=== PATIENT | male | born 2005 | race Caucasian/White ===

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

== ENCOUNTER 2025-02-18 15:13 | Emergency (ER) | payer OTHER, SELFPAY ==
--- OUTSIDE RECORDS SUMMARY | 2025-02-18 15:23 | XMS_ITS | Clinical Summary ---
Author Organization [facility] [address] [facility] [address] l[address] Address [address] [place] [address] Care Team Providers Care Backup Administrator Name Role Phone Tad Tapia MD Primary Care Provider [phone] Allergies No known active allergies Medications No known medications Active Problems Problem Noted Date Diagnosed Date Encounter for medical examination to establish c are 12/25/2022 Immunizations Immunization Administration Dates Next Due DTaP 08/27/2004 DTaP / Hep B / IPV 2003,2003, 004 DTaP / IPV 10/01/2008 HPV9 03/08/2015 Hep A, Ped Unspecified 05/17/2007,02/23/2006 Hep B, Adolescent or Pediatric 2003 HiB 05/20/2004, 4,2003,04/22 Influenza, Quadrivalent, Birdie l Culture-based MDCK, Preservative Free, Antibiotic Free, Intramuscular 01/31/2019 Influenza, Split 02/13/2008 Influenza, Unspecified 12/25/2022(Deferr ed: Patient Refused),12/25/2021(Deferred: Patient Refused),12/27/2006,02/23/2006 MMR 03/08/2015,10/01/2008,05/20/2004 Meningococcal MCV4P (Menactra) 03/08/2015 Pneumococcal Conjugate 7-Valent 05/21/19 05,2003,2003,04/22 Tdap 03/08/2015 Varicella 10/01/2008,04/30/2004 Social History Tobacco Use Types Packs/Day Years Used Date Smoking Tobacco: Never Smokeless Tobacco: Current Chew Comments:Nicotine salt pouch PHQ-2 Answer Date Recorded PHQ-2 Total Score (If total score is 3 or more points, staff should administer the PHQ-9) 0 12/25/2022 Personal Safety Answer Date Recorded Have you ever been in or are you currently in a harmful physical or emotional relationship or is someone making you feel afraid or unsafe? Denies 07/21/2023 Sex and Gender Information Value Date Recorded Sex Assigned at Not on file Legal Sex Male 3:59 PM [employer] Gender Identity Not on file Sexual Orientation Not on file Last Filed Vital Signs Vital Sign Reading Time Taken Comments Blood Pressure 100/52 07/21/2023 6:00 PM CDT Pulse 76 07/21/2023 6:00 PM CDT Temperature 37.2 C (99 F) 07/21/2023 6:00 PM CDT Respiratory Rate 16 07/21/2023 6:00 PM CDT Oxygen Saturation 95% 07/21/2023 6:00 PM CDT Inhaled Oxygen Concentration - - Weight 70.3 kg (155 lb) 07/21/2023 11:58 AM CDT Height 193 cm (6' 4) 07/21/2023 10:33 AM CDT Body Mass Index 18.87 07/21/2023 10:33 AM CDT Plan of Treatment Health Maintenance Due Date Last Done Comments Hepatitis C Screening 2003 HPV Vaccines (2 - Male 2-dose series) 09/06/2015 03/08/2015 Meningococcal B Vaccine (1 of 2 - Standard) 2019 Regular Well Visit/Exam 18-64 2021 Depression Screening 12/26/2023 12/25/2022 Covid-19 Vaccine (2 - season) 2024 10/04/2020 DTaP/Tdap/Td Vaccine (7 - Td or Tdap) 03/08/2025 03/08/2015, 10/01/2008, 08/27/2004, Additional history exists Influenza Vaccine (#1) 2025 9, 02/13/2008, 12/27/2006, Additional history exists Postponed from 10/23/2024 (Patient declined, but will receive in the future) Hepatitis B Screening Completed 2003 , 2003, 2003, Additional history exists Pneumococcal vaccine <65 Completed 005, 2003, 2003, Additional history exists Varicella Vaccines Completed 10/01/2008, 04/30/2004 Meningococcal Vaccine Aged Out 03/08/2015 No jana kane eligible based on patient's age to complete this topic Insurance [facility] [employer] [facility] AETNA SIG [id number] [facility] CHOICE PLUS AET SIG [id number] Care Teams Backup Administrator Relationship Specialty Start Date End Date Tad Tapia MD [facility] [place] [address] PCP - General Family Medicine 12/25/22
[2025-02-18 15:24] VITALS: BP 118/68; PULSE 79; RESP 16; TEMP 37.3; O2SAT 99
--- NOTE | 2025-02-18 15:38 | ED_ITS ---
HPI - URI/Sore Throat General Chief Complaint: Upper Respiratory Infection Stated Complaint: congestion/aches/chest tight Time Seen by Provider: 02/18/25 15:20 Source: patient and RN notes reviewed Mode of arrival: ambulatory Limitations: no limitations History of Present Illness HPI Narrative: 20-year-old male patient presents Express Care with significant other complaining of upper respiratory symptoms for 3 weeks. Patient reports cough, congestion, mucopurulent sinus drainage, chest congestion, body aches. Patient denies any fevers, chills, nausea vomiting, diarrhea, chest pain, difficulty breathing or any other symptoms. Patient taken provider relief. Patient denies any significant past medical problems. Related Data Allergies Allergy/AdvReac Type Severity Reaction Status Date / Time No Known Allergies Allergy Verified 02/18/25 15:28 Review of Systems Review of Systems: CONSTITUTIONAL: Denies fever, chills, or sweats. Positive body aches. EYES: Denies visual changes, redness, or discharge. ENT: Denies rhinorrhea, sore throat, or otalgia. Positive for congestion, sinus pressure, nasal drainage CARDIOVASCULAR: Denies chest pain, palpitations, or edema. RESPIRATORY: Positive for cough. Negative for wheezing or dyspnea. GASTROINTESTINAL: Denies abdominal pain, nausea, vomiting, or diarrhea. GENITOURINARY: Denies dysuria or hematuria. SKIN: Denies rash or itching. MUSCULOSKELETAL: Denies back pain, joint pain, or myalgia. NEUROLOGIC: Denies headache, numbness, or weakness. PSYCHIATRIC: Denies anxiety or depression. All other systems reviewed are negative, except as documented in HPI. PMFSH Past Medical History Medical History No active medical problems Family History Family History Other Asthma Social History Social History Smoking status: Never smoker Alcohol intake: never Comments At the time of my signature, I reviewed and agree with the nursing past medical, surgical, social, and family history. There is no relevant family history pertinent to the patient complaint. Exam Narrative: GENERAL: This is a well-nourished, well-developed adult, in no apparent distress. They are non ill-appearing, nontoxic appearing. HEAD: normocephalic, atraumatic. EYES: Sclera clear/white. Conjunctiva normal. Vision is grossly intact. Extraocular movements intact EARS: External ears normal, auditory canals clear and without drainage, TMs normal without perforation. Hearing grossly intact. NOSE: External nose normal with no obvious nasal discharge, nasal turbinates erythematous, no rhinorrhea. THROAT: Mucous membranes moist, posterior pharynx erythematous with mucopurulent PND. Uvula midline. NECK: Neck supple, non-tender without lymphadenopathy, masses or thyromegaly. CARDIOVASCULAR: Regular rate and rhythm without murmurs, gallops, or rubs. RESPIRATORY: Clear to auscultation. Breath sounds equal bilaterally. No wheezes, rales, or rhonchi. SKIN: warm, Dry, intact with no suspicious lesions or rash, good texture and turgor. NEURO: awake, alert, and oriented to person, place and time. There were no obvious focal neurologic abnormalities. EXTREMITIES: No joint tenderness, effusion, or edema noted. BACK: Nontender without deformity. Course Course Level of Care: Express Care Visit Vital Signs Vital signs: Vital Signs Temperature 99.1 F 02/18/25 15:24 Pulse Rate 79 02/18/25 15:24 Respiratory Rate 16 02/18/25 15:24 Blood Pressure 118/68 02/18/25 15:24 Pulse Oximetry 99 02/18/25 15:24 Oxygen Delivery Room Air 02/18/25 15:24 Temperature 99.1 F 02/18/25 15:24 Pulse Rate 79 02/18/25 15:24 Respiratory Rate 16 02/18/25 15:24 Blood Pressure 118/68 02/18/25 15:24 Pulse Oximetry 99 02/18/25 15:24 Oxygen Delivery Room Air 02/18/25 15:24 [facility] Narrative Medical decision making narrative: Patient's length of symptoms likely has bacterial sinusitis. Will treat with Augmentin. Will give benzonatate tablets for cough. Discussed physical exam findings. Advised supportive measures and signs/symptoms to go to the ER. Pt is appropriate for outpt treatment and f/u. Differential Diagnosis Differential Diagnosis: Differential diagnostic considerations for upper respiratory infection include upper respiratory infection, croup, otitis media, sinusitis, viral infection, bronchitis, influenza, pharyngitis, strep, uvulitis. Critical Care Time Critical Care Time Critical Care Time: No Discharge Plan Discharge Clinical Impression: Sinusitis Qualifiers: Sinusitis location: unspecified location Chronicity: acute Recurrence: non- recurrent Qualified Code(s): J01.90 - Acute sinusitis, unspecified Patient Disposition: Home Condition: Stable Instructions: Antibiotic Form, Sinusitis (ED) Additional Instructions: Take the antibiotics as directed and complete the course even if you start to feel better. You may use a Neti pot saline rinse 3 times a day with lukewarm distilled water Continue to take Tylenol or Motrin as needed for pain or fevers. Take benzonatate tablets as needed for cough. Use a humidifier or vaporizer at night. Drink plenty of water. 8-10 glasses per day. Use flonase 2 times per day for 5 days then as needed Take mucinex 2 times per day and be sure to take with 8oz of water. Follow up with Primary provider in 3-5 days Please go to the ER if he develops any difficulty breathing, chest pain, vomiting worsening symptoms, or any other concerns Patient Language: Danish Prescriptions: New benzonatate 200 mg capsule 200 mg PO TID PRN (Reason: cough) Qty: 20 0RF amoxicillin-pot clavulanate 875-125 mg tablet 1 tablet PO Q12H 7 Days Qty: 14 0RF Follow-up/Referrals: Harms,Tad Connors M.D. [Primary Care Provider] Time of Disposition: 15:37
== END 2025-02-18 15:40 | disposition home or self-care (01) ==
PROVIDERS: PCP Family Medicine
DX: J01.90 Acute sinusitis, unspecified (principal)
CPT/HCPCS: 99213; G0463